=== PATIENT | female | born 1940 | race Caucasian/White ===

== ENCOUNTER 2016-08-14 09:54 | Emergency (ER) | payer OTHER ==
[2016-08-14 10:00] VITALS: TEMP 98.2
--- NOTE | 2016-08-14 10:09 | CPEKG ---
Heart Rate: 88 RR Interval: 682 P-R Interval: 212 QRSD Interval: 72 QT Interval: 356 QTC Interval: 431 P [place]: 47 QRS [place]: 20 T Wave [place]: 33 EKG Severity - NORMAL ECG - EKG Impression: SINUS RHYTHM EKG Impression: similar to previous Electronically Signed By: Mario Berman 14-Aug-2016 10:49:41
[2016-08-14] MEDS ORDERED: ASPIRIN 325 MG TAB PO ONE (10:11)
[2016-08-14] MEDS ORDERED: ASPIRIN 81 MG CHEWABLE TAB ONE (10:14)
[2016-08-14 10:20] LABS: % IMMATURE GRANULYOCYTES 0.4 % (0.0-1.1); ABSOLUTE IMMATURE GRANULOCYTES 0.02 10^3/uL (0.00-0.10); ADD DIFF? NO; ADD MORPH? NO; ADD SCAN? NO; ATYPICAL LYMPHOCYTE FLAG 40 (0-99); FRAGMENT RBC FLAG 0 (0-99); HEMATOCRIT 46.6 % (38.0-47.0); HEMOGLOBIN 15.6 g/dL (12.6-16.3); LEFT SHIFT FLG 0 (0-99); LIPEMIA HEMOLYSIS FLAG 80 (0-99); MEAN CELL HEMOGLOBIN 28.8 pg (27.9-34.1); MEAN CELL HEMOGLOBIN CONCENTR. 33.5 g/dL (32.4-36.7); MEAN PLATELET VOLUME 10.9 fL (8.7-11.7); PLATELET CLUMPS FLAG 0 (0-99); PLATELET COUNT 177 10^3/uL (150-400); RED BLOOD CELL COUNT 5.42 10^6/uL (4.18-5.33); RED CELL DISTRIBUTION WIDTH 13.2 % (11.5-15.2)
[2016-08-14 10:43] LABS: ANION GAP 10 mEq/L (8-16); CALCIUM 9.6 mg/dL (8.5-10.4); CARBON DIOXIDE 27 mEq/l (22-31); CHLORIDE 108 mEq/L (97-110); CREATININE 0.9 mg/dL (0.6-1.0); GLOMERULAR FILTRATION RATE > 60; GLUCOSE 97 mg/dL (70-100); POTASSIUM 4.3 mEq/L (3.5-5.2); SODIUM 145 mEq/L (134-144)
--- NOTE | 2016-08-14 10:47 | DX ---
PA and Lateral Chest 10:03 a.m. Indication: Chest and epigastric pain. Cough. Comparison: Two-view chest October 09, 2013 Findings: Minimal diffuse peribronchial thickening is similar to October 2013. No airspace consolidatio n, edema or effusion. The heart size is normal. Impression: No pneumonia. Minimal chronic airways disease.
--- NOTE | 2016-08-14 10:48 | EDPHY ---
H & P Stated Complaint: cough congestion /sharp pains intermittently in chest last 2 weeks Time Seen by Provider: 08/14/16 10:24 HPI/ROS: CHIEF COMPLAINT: Chest pain HISTORY OF PRESENT ILLNESS: Patient is a 76-year-old female who comes to the emergency department complaining dull left-sided chest pain that has been present for 2 weeks. It has been constant. She also has occasional sharp shooting pain to her neck on the left side or her back. She has not been able to associated these with any type of movement or specific cause. Also over the last 4 days she has developed a sinus congestion, sore throat and cough. No shortness of breath. No abdominal pain or GI symptoms. No history of cardiac or pulmonary disease. REVIEW OF SYSTEMS: Constitutional: denies: chills, fever, recent illness, recent injury EENTM: denies: blurred vision, double vision, nose congestion Respiratory: See HPI Cardiac: See HPI Gastrointestinal/Abdominal: denies: abdominal pain, diarrhea, nausea, vomiting, blood streaked stools Genitourinary: denies: dysuria, frequency, hematuria, pain Musculoskeletal: denies: joint pain, muscle pain Skin: denies: lesions, rash, jaundice, bruising Neurological: denies: headache, numbness, paresthesia, tingling, dizziness, weakness Hematologic/Lymphatic: denies: blood clots, easy bleeding, easy bruising Immunologic/allergic: denies: HIV/AIDS, transplant EXAM: GENERAL: Well-appearing, well-nourished and in no acute distress. HEAD: Atraumatic, normocephalic. EYES: Pupils equal round and reactive to light, extraocular movements intact, sclera anicteric, conjunctiva are normal. ENT: TMs normal, nares patent, oropharynx clear without exudates. Moist mucous membranes. Tender sinuses NECK: Normal range of motion, supple without lymphadenopathy or JVD. LUNGS: Breath sounds clear to auscultation bilaterally and equal. No wheezes rales or rhonchi. HEART: Regular rate and rhythm without murmurs, rubs or gallops. ABDOMEN: Soft, nontender, normoactive bowel sounds. No guarding, no rebound. No masses appreciated. BACK: No CVA tenderness, no spinal tenderness, step-offs or deformities EXTREMITIES: Normal range of motion, no pitting or edema. No clubbing or cyanosis. NEUROLOGICAL: Cranial nerves II through XII grossly intact. Normal speech, normal gait. 5/5 strength, normal movement in all extremities, normal sensation PSYCH: Normal mood, normal affect. SKIN: Warm, dry, normal turgor, no visible rashes or lesions. Source: Patient Exam Limitations: No limitations - Personal History Current Tetanus/Diphtheria Vaccine: Yes - Medical/Surgical History Hx Asthma: No Hx Chronic Respiratory Disease: No Hx Diabetes: No Hx Cardiac Disease: Yes Hx Renal Disease: No Hx Cirrhosis: No Hx Alcoholism: No Hx HIV/AIDS: No Hx Splenectomy or Spleen Trauma: No Other PMH: ? TIA/ afib - Family History Significant Family History: No pertinent family hx - Social History Smoking Status: Former smoker Alcohol Use: None Drug Use: None Constitutional: Initial Vital Signs Temperature (C) 36.8 C 08/14/16 09:57 Heart Rate 95 08/14/16 09:57 Respiratory Rate 16 08/14/16 09:57 Blood Pressure 141/94 H 08/14/16 09:57 O2 Sat (%) 94 08/14/16 09:57 O2 Delivery Mode Room Air Allergies/Adverse Reactions: No Known Allergies Allergy (Verified 08/14/16 09:56) Home Medications: Medication Instructions Recorded SIMVASTATIN 08/21/10 Aspirin [Aspir 81] 81 mg PO 04/09/12 AZITHROMYCIN [Z-PACK] 250 mg PO DAILY #4 tab 08/14/16 Medical Decision Making - Diagnostics EKG Interpretation: An EKG obtained and was read and documented in trace view. Please see trace view for full reading and report. Sinus rhythm, no acute ischemic changes ED Course/Re-evaluation: 1:30 p.m. we discussed her CT and lab results. She is relieved. She is asymptomatic currently. It is reassuring that her troponin is negative after several weeks of symptoms. She thinks that this is likely musculoskeletal. Will also treat her with azithromycin for what appears to be a sinusitis or upper respiratory tract infection. The patient is happy with this and declines further workup or testing at this time. Vital signs remained stable. Additional verbal discharge instructions given. Differential Diagnosis: Partial list of the Differential diagnosis considered include but were not limited to; bronchitis, pneumonia, acute coronary disease, sinusitis, viral syndrome and although unlikely based on the history and physical exam, I also considered PE, dissection. I discussed these differential diagnoses and the plan with the patient as well as the usual and expected course. The patient understands that the diagnosis is provisional and that in medicine we are not always correct and that further workup is often warranted. Usual and customary warnings were given. All of the patient's questions were answered. The patient was instructed to return to the emergency department should the symptoms at all worsen or return, otherwise to followup with the physician as we discussed. - Data Points Laboratory Results: Laboratory Results 08/14/16 10:11 08/14/16 10:11 08/14/16 10:11 WBC 5.62 10^3/uL (3.80-9.50) RBC 5.42 H 10^6/uL (4.18-5.33) Hgb 15.6 g/dL (12.6-16.3) Hct 46.6 % (38.0-47.0) MCV 86.0 fL (81.5-99.8) MCH 28.8 pg (27.9-34.1) MCHC 33.5 g/dL (32.4-36.7) RDW 13.2 % (11.5-15.2) Plt Count 177 10^3/uL (150-400) MPV 10.9 fL (8.7-11.7) Neut % (Auto) 50.5 % (39.3-74.2) Lymph % (Auto) 31.7 % (15.0-45.0) Lane % (Auto) 11.2 % (4.5-13.0) Eos % (Auto) 5.7 % (0.6-7.6) Baso % (Auto) 0.5 % (0.3-1.7) Nucleat RBC Rel Count 0.0 % (0.0-0.2) Absolute Neuts (auto) 2.84 10^3/uL (1.70-6.50) Absolute Lymphs (auto) 1.78 10^3/uL (1.00-3.00) Absolute Monos (auto) 0.63 10^3/uL (0.30-0.80) Absolute Eos (auto) 0.32 10^3/uL (0.03-0.40) Absolute Basos (auto) 0.03 10^3/uL (0.02-0.10) Absolute Nucleated RBC 0.00 10^3/uL (0-0.01) Immature Gran % 0.4 % (0.0-1.1) Immature Gran # 0.02 10^3/uL (0.00-0.10) Sodium 145 H mEq/L (134-144) Potassium 4.3 mEq/L (3.5-5.2) Chloride 108 mEq/L (97-110) Carbon Dioxide 27 mEq/l (22-31) Anion Gap 10 mEq/L (8-16) BUN 14 mg/dL (7-23) Creatinine 0.9 mg/dL (0.6-1.0) Estimated GFR > 60 Glucose 97 mg/dL (70-100) Calcium 9.6 mg/dL (8.5-10.4) Troponin I < 0.012 ng/mL (0-0.034) Medications Given: Discontinued Medications Aspirin (Aspirin) 325 mg PO EDNOW ONE Stop: 08/14/16 10:12 Last Admin: 08/14/16 10:16 Dose: 325 mg Azithromycin (Zithromax) 500 mg PO EDNOW ONE PRN Reason: Protocol Stop: 08/14/16 13:39 Last Admin: 08/14/16 13:40 Dose: 500 mg Departure - Departure Disposition: Home, Routine, Self-Care Clinical Impression: Sinusitis Qualifiers: Sinusitis location: maxillary Chronicity: acute Recurrence: non-recurrent Qualifier Code: (J01.00) Acute maxillary sinusitis, unspecified Condition: Fair Instructions: Sinusitis (ED) Referrals: Didi Garrison MD [Primary Care Provider] - As per Instructions Prescriptions: AZITHROMYCIN [Z-PACK] 250 mg PO DAILY #4 tab
[2016-08-14] MEDS ORDERED: IOPAMIDOL (ISOVUE 370) 100 ML BTL IV ONE (10:53)
[2016-08-14 10:54] LABS: TROPONIN I < 0.012 ng/mL (0-0.034)
--- NOTE | 2016-08-14 12:02 | CT ---
Chest CTA With IV Contrast History: Cough, chest pain. Technique: Ultrafast ultrathin [address] obtained through the chest after bolus administra tion of 85 mL of Isovue 370 nonionic contrast without complication. Soft tissue and bone window evalu ation is performed. Dose reduction techniques were utilized. Comparison: Chest x-ray earlier today CT Chest: Findings: There is a small hiatal hernia with fluid in the hernia sac. There is no evidence of pneumo reza, pleural effusion, mass or pneumothorax. There is LAD coronary artery disease. Heart size is norm al and there is no pericardial effusion. The thoracic aorta is normal in size without evidence of dis section. There is a small 5 mm noncalcified nodule in the left lower lobe on image 130, series 6, sta ble since 2006. There is heterogeneous enlargement with macrocalcification formation involving the ri ght thyroid gland. There is a small nodule in the thyroid isthmus. There is a 19 x 12 mm bilobed nodu le in the upper outer right breast that is stable since CT June 2007 CT Pulmonary Angiogram: Technique: Multiplanar and 3D reconstructions are reviewed on an independent 3D workstation. Comparison: CT 06/16/2007 Findings: No filling defects or mural thickening is detected. Specifically, no evidence for pulmonary embolism. Right-sided heart chambers are not dilated and the interventricular septum has normal morp hology. Impression: No evidence for pulmonary embolic disease. 2. Coronary artery disease without cardiomegaly. 3. Small hiatal hernia with air-fluid level. 4. Right-sided thyroid enlargement with a small isthmus nodule. This is consistent with an multinodul ar goiter identified on ultrasound in August 2015. It has enlarged since 2006. 5. 5 mm left lower lobe benign noncalcified nodule stable since June 2007. Results called and discussed with VINCENT MIRANDA MD at 08/14/2016 11:59 General information for patients regarding this examination can be found at [email or web address]. If you have questions or comments about this report, please contact me at [phone] (hospital) or [phone] (cell).
[2016-08-14] MEDS ORDERED: AZITHROMYCIN 250 MG TAB PO ONE (13:38)
[2016-08-14 13:51] VITALS: BP 118/76; PULSE 71; RESP 16; O2SAT 95
== END 2016-08-14 13:50 | disposition home or self-care (01) ==
DX: J01.00 Acute maxillary sinusitis, unspecified (principal); Z87.891 Personal history of nicotine dependence; Z79.82 Long term (current) use of aspirin
CPT/HCPCS: 71020; 71275; 93005; 99285; Q9967

== ENCOUNTER → 2016-11-05 | Outpatient (CLI) | payer OTHER | LOC: BMCIMAGING 13:47 | PROVIDERS: ATTEND Internal Medicine Endocrinology, Diabetes & Metabolism | DX: Z13.820 Encounter for screening for osteoporosis (principal); M81.0 Age-related osteoporosis without current pathological fracture ==

== ENCOUNTER → 2017-03-26 | Outpatient (CLI) | payer OTHER | LOC: BMCIMAGING 07:56 | PROVIDERS: ATTEND Internal Medicine | DX: Z12.31 Encounter for screening mammogram for malignant neoplasm of breast (principal); Z80.3 Family history of malignant neoplasm of breast | CPT/HCPCS: G0202 ==

== ENCOUNTER → 2017-04-22 | Outpatient (CLI) | payer OTHER | LOC: BMCIMAGING 09:04 | PROVIDERS: ATTEND Family Medicine | DX: J40 Bronchitis, not specified as acute or chronic (principal) ==

== ENCOUNTER → 2018-04-10 | Outpatient (CLI) | payer OTHER | LOC: BMCIMAGING 08:45 | PROVIDERS: ATTEND Internal Medicine | DX: Z12.31 Encounter for screening mammogram for malignant neoplasm of breast (principal); Z80.3 Family history of malignant neoplasm of breast ==

== ENCOUNTER → 2018-06-06 | Outpatient (CLI) | payer OTHER ==
[~2018-06-06] MED LIST: IOPAMIDOL (ISOVUE-300) 100 ML BTL ONE
== END ==
LOC: FIMAGING 08:43
PROVIDERS: ATTEND Internal Medicine
DX: E04.2 Nontoxic multinodular goiter (principal); K44.9 Diaphragmatic hernia without obstruction or gangrene; N63.11 Unspecified lump in the right breast, upper outer quadrant; I72.8 Aneurysm of other specified arteries
CPT/HCPCS: 71260; 74160; Q9967

== ENCOUNTER 2018-06-17 08:28 | Emergency (ER) | payer OTHER ==
--- NOTE | 2018-06-17 08:43 | EDPHY ---
H & P Stated Complaint: 0400 woke c L low bk/L inguinal pn. Painful urination. Time Seen by Provider: 06/17/18 08:43 - Personal History Current Tetanus/Diphtheria Vaccine: Unsure - Medical/Surgical History Hx Asthma: No Hx Chronic Respiratory Disease: No Hx Diabetes: No Hx Cardiac Disease: Yes Hx Renal Disease: No Hx Cirrhosis: No Hx Alcoholism: No Hx HIV/AIDS: No Hx Splenectomy or Spleen Trauma: No Other PMH: ? TIA/ afib - Social History Smoking Status: Former smoker Constitutional: Initial Vital Signs Temperature (C) 36.5 C 06/17/18 08:33 Heart Rate 66 06/17/18 08:33 Respiratory Rate 18 06/17/18 08:33 Blood Pressure 153/108 H 06/17/18 08:33 O2 Sat (%) 95 06/17/18 08:33 O2 Delivery Mode Room Air O2 (L/minute) 2 Allergies/Adverse Reactions: No Known Allergies Allergy (Verified 06/17/18 08:32) Home Medications: Medication Instructions Recorded SIMVASTATIN 08/21/10 Aspirin [Aspir 81] 81 mg PO 04/09/12 AZITHROMYCIN [Z-PACK] 250 mg PO DAILY #4 tab 08/14/16 Medical Decision Making - Diagnostics Imaging Results: Imaging Impressions Abdomen/Pelvis CT 06/17/18 08:51 Impression: 1. Moderate to severe left hydroureteronephrosis secondary to a 4.5 mm distal left ureterolithiasis. 2. A 1 mm nonobstructive calyceal calculus lower pole right kidney. No right hydronephrosis. Atherosclerotic aorta and iliac arteries without aneurysm. 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 4. L4-L5 moderate central canal stenosis secondary to bilateral facet arthropathy. Findings and recommendations discussed with Emergency Department physician, Luis Carlos Forde MD at 9:30 hours, 06/17/2018. Final report concurs with initial preliminary interpretation. Attention: This CT examination is specifically designed to evaluate patients who are clinically suspected of having acute obstructive uropathy. This examination does not use radiographic contrast, and as such, provides only a limited evaluation of the abdomen, pelvis and retroperitoneum. If there is further clinical suspicion for pathological conditions other than obstructive uropathy, a complete CT evaluation of the abdomen and pelvis utilizing intravenous, oral, and rectal contrast should be considered. Imaging: I viewed and interpreted images myself ED Course/Re-evaluation: CHIEF COMPLAINT: Abdominal/back pain HISTORY OF PRESENT ILLNESS: This patient is a 78 year old female with history of kidney stones arriving via EMS for evaluation of left sided abdominal and back pain. She woke this morning at 4am with stabbing pain in her LLQ. She endorses associated nausea and diarrhea. The pain has moved around from the LLQ towards her left flank. She has subjective fever and chills. EMS crews administered 4mg Zofran and 100mcg Fentanyl in transport for symptom relief. No chest pain, shortness of breath, lightheadedness, or other associated symptoms. REVIEW OF SYSTEMS: A comprehensive 10 system review of systems is otherwise negative aside from elements mentioned in the history of present illness and medical decision making. PHYSICAL EXAM: HR, BP, O2 Sat, RR. Temp noted General Appearance: Alert, well hydrated, appropriate, and non-toxic appearing. Head: Atraumatic without scalp tenderness or obvious injury Eyes: Pupils equal, round, reactive to light and accommodation, EOMI, no trauma , no injection. Ears: Clear bilaterally, no perforation, normal landmarks Nose: Atraumatic, no rhinorrhea, clear. Throat: There is no erythema or exudates, no lesions, normal tonsils, mucus membranes moist. Neck: Supple, 2+ carotid upstroke, nontender, no lymphadenopathy. Respiratory: No retractions, no distress, no wheezes, and no accessory muscle use. Lungs are clear to auscultation bilaterally. Cardiovascular: Regular rate and rhythm, no murmurs, rubs, or gallops. Bilateral carotid, radial, dorsalis pedis, and posterior tibial pulses intact. Good capillary refill all extremities. Gastrointestinal: Abdomen is soft, nontender, non-distended, no masses, no rebound, no guarding, no peritoneal signs. Musculoskeletal: Normal active ROM of all extremities, atraumatic. Neurological: Alert, appropriate, and interactive. The patient has normal DTRs and non-focal cranial nerves, motor, sensory, and cerebellar exam. Skin: No rashes, good turgor, no nodules on palpation. Past medical history: Atrial fibrillation Past surgical history: Noncontributory Family history: Noncontributory Social history: Retired. Lives in [place]. Does not abuse tobacco, drugs, or alcohol. DIFFERENTIAL DIAGNOSIS: The differential diagnosis for the patient's flank pain included but was not limited to musculoskeletal causes, kidney stone, pyelonephritis, shingles, diverticulitis, appendicitis, and aortic aneurysm. MEDICAL DECISION MAKIN78 y/o female with history of kidney stones presents with left flank and left lower quadrant pain. No tenderness to palpation on exam. Plan for CT abdomen/ pelvis without contrast to r/o kidney stone or other acute processes. Plan to administer Dilaudid, Ketorolac, Zofran, IVF for symptom relief. Plan for labs including CBC, chemistries, UA. Patient continues to complain of nausea. Plan to administer 12.5mg IV Phenergan for nausea relief. 9:[address] Griffin, radiologist. CT abdomen/pelvis shows 4.5mm distal left kidney stone with moderate to severe left hydroureteronephrosis . UA shows hematuria. Trace leuk esterase present, likely secondary to kidney stone rather than an infectious process. 11:00 Reassessed. Patient is currently feeling much better. Her pain and nausea are completely relieved. She feels comfortable going home and following up with urology in the outpatient setting. Plan to discharge home in good condition. Follow up and return precautions discussed. She is comfortable with this plan. - Data Points Laboratory Results: Laboratory Results 06/17/18 08:30 06/17/18 08:30 06/17/18 06/17/18 06/17/18 11:00 09:03 08:30 WBC RBC Hgb POC Hgb 15.0 gm/dL gm/dL (12.6-16.3) Hct POC Hct 44 % % (38-47) MCV MCH MCHC RDW Plt Count MPV Neut % (Auto) Lymph % (Auto) [place] % (Auto) Eos % (Auto) Baso % (Auto) Nucleat RBC Rel Count Absolute Neuts (auto) Absolute Lymphs (auto) Absolute Monos (auto) Absolute Eos (auto) Absolute Basos (auto) Absolute Nucleated RBC Immature Gran % Immature Gran # POC Sodium 141 mEq/L mEq/L (135-145) Sodium 139 mEq/L mEq/L (135-145) POC Potassium 4.2 mEq/L mEq/L (3.3-5.0) Potassium 5.0 mEq/L mEq/L (3.5-5.2) POC Chloride 106 mEq/L mEq/L (97-110) Chloride 109 mEq/L mEq/L (97-110) Carbon Dioxide 23 mEq/l mEq/l (22-31) Anion Gap 7 mEq/L mEq/L (6-14) POC BUN 25 mg/dL H mg/dL (7-23) BUN 26 mg/dL H mg/dL (7-23) Creatinine 1.2 mg/dL H mg/dL (0.6-1.0) POC Creatinine 1.2 mg/dL H mg/dL (0.6-1.0) Estimated GFR 43 Glucose 122 mg/dL H mg/dL (70-100) POC Glucose 141 mg/dL H mg/dL (70-100) Calcium 9.8 mg/dL mg/dL (8.5-10.4) Urine Color YELLOW Urine Appearance MODERATELY TURBID Urine pH 5.0 (5.0-7.5) Ur Specific Avenue 1.021 (1.002-1.030) Urine Protein NEGATIVE (NEGATIVE) Urine Ketones NEGATIVE (NEGATIVE) Urine Blood 3+ H (NEGATIVE) Urine Nitrate NEGATIVE (NEGATIVE) Urine Bilirubin NEGATIVE (NEGATIVE) Urine Urobilinogen NEGATIVE EU EU (0.2-1.0) Ur Leukocyte Esterase TRACE H (NEGATIVE) Urine RBC 50-182 /hpf H /hpf (0-3) Urine WBC 10-15 /hpf H /hpf (0-3) Ur Epithelial Cells TRACE /lpf /lpf (NONE-1+) Calcium Oxalate Crystal PRESENT /hpf /hpf (NONE-1+) Urine Bacteria 1+ /hpf H /hpf (NONE SEEN) Urine Mucus TRACE /lpf /lpf (NONE-1+) Urine Glucose NEGATIVE (NEGATIVE) 06/17/18 08:30 WBC 9.40 10^3/uL 10^3/uL (3.80-9.50) RBC 5.40 10^6/uL H 10^6/uL (4.18-5.33) Hgb 15.9 g/dL g/dL (12.6-16.3) POC Hgb Hct 47.1 % H % (38.0-47.0) POC Hct MCV 87.2 fL fL (81.5-99.8) MCH 29.4 pg pg (27.9-34.1) MCHC 33.8 g/dL g/dL (32.4-36.7) RDW 13.5 % % (11.5-15.2) Plt Count 186 10^3/uL 10^3/uL (150-400) MPV 12.2 fL H fL (8.7-11.7) Neut % (Auto) 81.9 % H % (39.3-74.2) Lymph % (Auto) 13.1 % L % (15.0-45.0) [place] % (Auto) 3.8 % L % (4.5-13.0) Eos % (Auto) 0.4 % L % (0.6-7.6) Baso % (Auto) 0.5 % % (0.3-1.7) Nucleat RBC Rel Count 0.0 % % (0.0-0.2) Absolute Neuts (auto) 7.69 10^3/uL H 10^3/uL (1.70-6.50) Absolute Lymphs (auto) 1.23 10^3/uL 10^3/uL (1.00-3.00) Absolute Monos (auto) 0.36 10^3/uL 10^3/uL (0.30-0.80) Absolute Eos (auto) 0.04 10^3/uL 10^3/uL (0.03-0.40) Absolute Basos (auto) 0.05 10^3/uL 10^3/uL (0.02-0.10) Absolute Nucleated RBC 0.00 10^3/uL 10^3/uL (0-0.01) Immature Gran % 0.3 % % (0.0-1.1) Immature Gran # 0.03 10^3/uL 10^3/uL (0.00-0.10) POC Sodium Sodium POC Potassium Potassium POC Chloride Chloride Carbon Dioxide Anion Gap POC BUN BUN Creatinine POC Creatinine Estimated GFR Glucose POC Glucose Calcium Urine Color Urine Appearance Urine pH Ur Specific Avenue Urine Protein Urine Ketones Urine Blood Urine Nitrate Urine Bilirubin Urine Urobilinogen Ur Leukocyte Esterase Urine RBC Urine WBC Ur Epithelial Cells Calcium Oxalate Crystal Urine Bacteria Urine Mucus Urine Glucose Medications Given: Discontinued Medications Hydromorphone HCl (Dilaudid) 0.5 mg IVP EDNOW ONE Stop: 06/17/18 08:52 Last Admin: 06/17/18 09:03 Dose: 0.5 mg Sodium Chloride (Ns) 1,000 mls @ 0 mls/hr IV EDNOW ONE; Wide Open PRN Reason: Protocol Stop: 06/17/18 08:52 Last Admin: 06/17/18 09:01 Dose: 1,000 mls Ketorolac Tromethamine (Toradol) 30 mg IVP EDNOW ONE Stop: 06/17/18 08:52 Last Admin: 06/17/18 09:01 Dose: 30 mg Ondansetron HCl (Zofran) 4 mg IVP EDNOW ONE Stop: 06/17/18 08:52 Last Admin: 06/17/18 09:01 Dose: 4 mg Promethazine HCl (Phenergan) 12.5 mg IVP EDNOW ONE Stop: 06/17/18 09:37 Last Admin: 06/17/18 09:41 Dose: 12.5 mg Point of Care Test Results: Chemistry 06/17/18 09:03 POC Sodium 141 mEq/L mEq/L (135-145) POC Potassium 4.2 mEq/L mEq/L (3.3-5.0) POC Chloride 106 mEq/L mEq/L (97-110) POC BUN 25 mg/dL H mg/dL (7-23) POC Creatinine 1.2 mg/dL H mg/dL (0.6-1.0) POC Glucose 141 mg/dL H mg/dL (70-100) ISTAT H&H 06/17/18 09:03 POC Hgb 15.0 gm/dL gm/dL (12.6-16.3) POC Hct 44 % % (38-47) Departure - Departure Disposition: Home, Routine, Self-Care Clinical Impression: Calculus of left kidney Condition: Good Instructions: Kidney Stones (ED), Flank Pain (ED) Additional Instructions: Follow up with your urologist within one week. Return to the emergency department for fever, severe pain, inability to urinate or other concerns. Referrals: Cheri Chaudhry MD [Medical Doctor] - As per Instructions Report Scribed for: Luis Carlos Forde Report Scribed by: Shena Patten Date of Report: 06/17/18 Time of Report: 08:47
[2018-06-17] MEDS ORDERED: KETOROLAC 30 MG/1 ML SDV IVP ONE (08:51)
[2018-06-17] MEDS ORDERED: HYDROmorphONE/DILAUDID 2 MG/ML INJ IVP ONE (08:51)
[2018-06-17] MEDS ORDERED: NS 1,000 ML IV ONE (08:51)
[2018-06-17] MEDS ORDERED: ONDANSETRON 4 MG/2 ML VIAL IVP ONE (08:51)
[2018-06-17 09:01] LABS: PLATELET COUNT 186 10^3/uL (150-400)
[2018-06-17] MEDS ORDERED: PROMETHAZINE HCL 25 MG/ML INJ IVP ONE (09:36)
[2018-06-17 12:02] VITALS: BP 122/70
== END 2018-06-17 12:15 | disposition home or self-care (01) ==
LOC: EDUNIT#
DX: N13.1 Hydronephrosis with ureteral stricture, not elsewhere classified (principal); N20.0 Calculus of kidney; E86.9 Volume depletion, unspecified; Z87.442 Personal history of urinary calculi
CPT/HCPCS: 74176; 96361; 96374; 96375; 99285; J1170; J1885; J2405; J2550; 82435-PO; 82565-PO; 82947-PO; 84132-PO; 84295-PO; 84520-PO; 85014-PO

== ENCOUNTER 2018-06-18 14:50 | Emergency (ER) | payer OTHER ==
[2018-06-18] MEDS ORDERED: ACETAMINOPHEN 325 MG TAB PO ONE (17:02)
--- NOTE | 2018-06-18 17:05 | EDPHY ---
H & P Stated Complaint: R upper quad pain, chills, recent kid stone Time Seen by Provider: 06/18/18 16:09 HPI/ROS: CHIEF COMPLAINT: Fever HISTORY OF PRESENT ILLNESS: 78-year-old female presents with fever. Onset of fever this morning. Associated with shaking chills. She also developed mild right upper quadrant pain this morning. The pain has been constant, without clear alleviating or aggravating factors. No nausea, vomiting or diarrhea. Yesterday she was seen in this emergency department for left flank pain and diagnosed with a left ureteral calculus. She passed the stone yesterday evening and denies left flank/abdominal pain today. She received a flu vaccination this year. No URI symptoms or myalgias. REVIEW OF SYSTEMS: complete 10 point ROS reviewed and is negative except for the noted elements in the HPI - Medical/Surgical History Hx Asthma: No Hx Chronic Respiratory Disease: No Hx Diabetes: No Hx Cardiac Disease: No Hx Renal Disease: No Hx Cirrhosis: No Hx Alcoholism: No Hx HIV/AIDS: No Hx Splenectomy or Spleen Trauma: No Other PMH: sleep apnea. a fib remote hx - Social History Smoking Status: Never smoked Alcohol Use: Sober Drug Use: None - Physical Exam Exam: General Appearance: Alert, pleasant, nontoxic-appearing Eyes: Pupils equal and round, no conjunctival pallor or injection ENT, Mouth: Mucous membranes moist, no pharyngeal erythema Neck: Normal inspection, no adenopathy Respiratory: Lungs are clear to auscultation Cardiovascular: Regular rate and rhythm Gastrointestinal: Abdomen is soft, mild right upper quadrant tenderness Neurological: A&O, nonfocal, normal gait Skin: Warm and dry Extremities: Normal inspection, no erythema Psychiatric: Mood and affect normal Constitutional: Initial Vital Signs Temperature (C) 37.0 C 06/18/18 15:00 Heart Rate 89 06/18/18 15:00 Respiratory Rate 16 06/18/18 15:00 Blood Pressure 152/82 H 06/18/18 15:00 O2 Sat (%) 97 06/18/18 15:00 O2 Delivery Mode Room Air Allergies/Adverse Reactions: No Known Allergies Allergy (Verified 06/17/18 08:32) Home Medications: Medication Instructions Recorded NK [No Known Home Meds] 06/18/18 Medical Decision Making - Diagnostics Imaging Results: Abdomen Ultrasound 06/18/18 17:03 Impression: No evidence for cholelithiasis or cholecystitis. Evidence of atherosclerotic change in the abdominal aorta, without evidence for aneurysmal dilatation. Limited visualization of the pancreatic tail secondary to overlying bowel gas. Results called and discussed with Katie Baxter M.D. on June 18, 2018 at 1752. Chest X-Ray 06/18/18 17:03 Impression: Question mild underlying bronchitis. No other findings for acute cardiopulmonary abnormality. Imaging: Discussed imaging studies w/ call center analyst Radiologist, I viewed and interpreted images myself ED Course/Re-evaluation: This patient presents with fever starting today. Physical exam reveals a nontoxic-appearing elderly female with mild right upper quadrant tenderness. Fever workup initiated, including right upper quadrant ultrasound. Laboratory results and imaging tests are unremarkable. No leukocytosis, influenza negative and normal urinalysis. Right upper quadrant ultrasound reveals no evidence of cholecystitis or gallstones and chest x-ray reveals no evidence of pneumonia. Unclear etiology of fever, likely viral. The patient will take ibuprofen or Tylenol if fever recurs. She return to the emergency department for worsening symptoms or any concerns. Follow-up with PCP in 2 days if fever persists. Differential Diagnosis: Differential diagnosis includes pyelonephritis, cholecystitis, influenza, cellulitis, pneumonia, abscess, meningitis. - Data Points Laboratory Results: Laboratory Results 06/18/18 16:50 06/18/18 16:50 Medications Given: Discontinued Medications Acetaminophen (Tylenol) 650 mg PO EDNOW ONE Stop: 06/18/18 17:03 Last Admin: 06/18/18 18:36 Dose: 650 mg Departure - Departure Disposition: Home, Routine, Self-Care Clinical Impression: Fever Condition: Good Instructions: Fever in Adults (ED) Additional Instructions: Ibuprofen 600 mg every 6 hr wall fever persists. Follow-up in 1-2 days for persistent fever. Return sooner for worsening symptoms or any concerns. Referrals: Didi Garrison MD [Primary Care Provider] - As per Instructions
[2018-06-18 17:09] LABS: PLATELET COUNT 147 10^3/uL (150-400)
[2018-06-18 18:10] VITALS: BP 131/72
== END 2018-06-18 19:19 | disposition home or self-care (01) ==
DX: R50.9 Fever, unspecified (principal); R10.11 Right upper quadrant pain

== ENCOUNTER 2018-07-29 10:25 | Observation (INO) | payer OTHER ==
[2018-07-29] MEDS ORDERED: ASPIRIN 81 MG CHEWABLE TAB PO ONE (11:10)
[2018-07-29] MEDS ORDERED: ONDANSETRON 4 MG/2 ML VIAL IVP ONE (11:10)
[2018-07-29 11:16] LABS: PLATELET COUNT 166 10^3/uL (150-400)
[2018-07-29 11:24] LABS: INR 0.96 (0.83-1.16)
--- NOTE | 2018-07-29 12:36 | EDPHY ---
H & P Time Seen by Provider: 07/29/18 11:11 HPI/ROS: HPI Chest discomfort, epigastric pain. 78-year-old female by private vehicle. This patient reports that last night she developed and epigastric pain described as sharp and burning. She describes that it then radiated up into her left chest and into her left neck. She states that she has not had this epigastric pain as intensely is in the past. She does however say that she has had this pain in her chest radiating up into her left neck in the past. He does thought to be attributed to a hiatal hernia. She reports that she had 2 episodes of nonbilious nonbloody vomiting last night followed by dry heaving after she tried to drink some water prior to going to bed. She was not able to sleep at all last night because of the discomfort. She reports that again this morning she had this epigastric discomfort in continued radiation of this pain into her left anterior chest and left lateral neck. She was initially seen at the office of her primary care physician, Dr. Didi Garrison. She was then sent immediately here to the emergency department for evaluation. ROS: Constitutional: No fever, no chills. No weakness. Eyes: No discharge. No changes in vision. ENT: No sore throat. No nasal congestion or rhinorrhea. Respiratory: No cough. No shortness of breath. Cardiac: As above, no palpitations. Gastrointestinal: As above, no vomiting, no diarrhea. Genitourinary: No hematuria. No dysuria or increased frequency with urination. Musculoskeletal: No back pain. As above. No myalgias or arthralgias. Skin: No rashes. Neurological: No headache. No focal weakness or altered sensation. Past medical history: Remote history of atrial fibrillation, kidney stones, sleep apnea, as above. Social history: She lives with a partner. Nonsmoker. No alcohol. Physical Exam: General Appearance: Alert, no distress. This patient is responding to questions appropriately and in full sentences. This patient appears well- hydrated and well-nourished. Eyes: Pupils equal and round no pallor or injection. No lid edema, erythema or injection. Respiratory: There are no retractions, lungs are clear to auscultation with good air movement bilaterally. Cardiovascular: Regular rate and rhythm. No murmur appreciated. Gastrointestinal: Abdomen is soft and nontender, no masses, bowel sounds normal. No focal tenderness at McBurney's point. No Sharp sign. Neurological: Motor sensory function is grossly intact. Cranial nerves are normal. Gait is normal. Skin: Warm and dry, no rashes. Musculoskeletal: Neck is supple and nontender. Extremities are symmetrical. All joints range without pain or impingement. Psychiatric: No agitation. No depression. Database: EKG: EKG time is 11:07 a.m.; EKG shows a narrow complex normal sinus rhythm with a ventricular rate of 86. The SC is prolonged, the QRS, QT intervals are within normal limits. There are no ST-T wave changes indicative of ischemic or injury pattern. No evidence of right heart strain. Interpreted by me. Imaging: Chest x-ray AP portable; the cardiac mediastinal silhouette is unremarkable. No evidence of infiltrate or pneumothorax. No acute cardiopulmonary disease process noted. Interpreted by me. Procedures: Emergency department course: Triage vital signs reviewed and are unremarkable. IV was placed. She was placed on a cafeteria monitor. An EKG was obtained and reviewed by myself. She was given 324 mg of chewed aspirin and 4 mg of IV Zofran. 12:40 p.m., the patient was re-evaluated, resting comfortably at this time. I reviewed her emergency department workup in detail. I discussed admission for observation overnight. Her story is concerning. At this time she does not feel comfortable going home. She endorses admission. Hospitalist paged. 12:50 p.m., spoke with on-call hospitalist. Case discussed in detail. Patient accepted for admission to the hospitalist service by Dr. Cuadra. Cardiology consultation deferred to hospitalist. Differential Diagnosis: The differential diagnosis on this patient includes but is not limited to gastritis, pancreatitis, acute coronary syndrome, biliary colic. This represents a partial list of diagnoses considered. These considerations are based on history, physical exam, past history, reassessment and diagnostic testing. Smoking Status: Never smoked Constitutional: Initial Vital Signs Temperature (C) 37 C 07/29/18 10:37 Heart Rate 98 07/29/18 10:37 Respiratory Rate 16 07/29/18 10:37 Blood Pressure 131/80 H 07/29/18 10:37 O2 Sat (%) 92 07/29/18 10:37 O2 Delivery Mode Room Air Allergies/Adverse Reactions: No Known Allergies Allergy (Verified 07/29/18 10:37) Home Medications: Medication Instructions Recorded NK [No Known Home Meds] 06/18/18 Medical Decision Making - Data Points Laboratory Results: Laboratory Results 07/29/18 11:05 07/29/18 11:05 07/29/18 07/29/18 07/29/18 11:17 11:05 11:05 WBC RBC Hgb Hct MCV MCH MCHC RDW Plt Count MPV Neut % (Auto) Lymph % (Auto) [place] % (Auto) Eos % (Auto) Baso % (Auto) Nucleat RBC Rel Count Absolute Neuts (auto) Absolute Lymphs (auto) Absolute Monos (auto) Absolute Eos (auto) Absolute Basos (auto) Absolute Nucleated RBC Immature Gran % Immature Gran # RBC/WBC/PLT Morphology Platelet Estimate PT 13.0 SEC SEC (12.0-15.0) INR 0.96 (0.83-1.16) APTT 24.1 SEC SEC (23.0-38.0) Sodium 137 mEq/L mEq/L (135-145) Potassium 4.2 mEq/L mEq/L (3.5-5.2) Chloride 107 mEq/L mEq/L (97-110) Carbon Dioxide 22 mEq/l mEq/l (22-31) Anion Gap 8 mEq/L mEq/L (6-14) BUN 24 mg/dL H mg/dL (7-23) Creatinine 1.0 mg/dL mg/dL (0.6-1.0) Estimated GFR 53 Glucose 128 mg/dL H mg/dL (70-100) Calcium 9.2 mg/dL mg/dL (8.5-10.4) Total Bilirubin 0.7 mg/dL mg/dL (0.1-1.4) Conjugated Bilirubin 0.3 mg/dL mg/dL (0.0-0.5) Unconjugated Bilirubin 0.4 mg/dL mg/dL (0.0-1.1) AST 29 IU/L IU/L (14-46) ALT 34 IU/L IU/L (9-52) Alkaline Phosphatase 94 IU/L IU/L (38-126) POC Troponin I 0.00 ng/mL ng/mL (0.00-0.08) Total Protein 7.1 g/dL g/dL (6.3-8.2) Albumin 4.1 g/dL g/dL (3.5-5.0) Lipase 69 IU/L IU/L (23-300) 07/29/18 11:05 WBC 6.35 10^3/uL 10^3/uL (3.80-9.50) RBC 5.34 10^6/uL H 10^6/uL (4.18-5.33) Hgb 15.7 g/dL g/dL (12.6-16.3) Hct 47.1 % H % (38.0-47.0) MCV 88.2 fL fL (81.5-99.8) MCH 29.4 pg pg (27.9-34.1) MCHC 33.3 g/dL g/dL (32.4-36.7) RDW 13.8 % % (11.5-15.2) Plt Count 166 10^3/uL 10^3/uL (150-400) MPV 11.1 fL fL (8.7-11.7) Neut % (Auto) 88.6 % H % (39.3-74.2) Lymph % (Auto) 5.5 % L % (15.0-45.0) [place] % (Auto) 5.0 % % (4.5-13.0) Eos % (Auto) 0.3 % L % (0.6-7.6) Baso % (Auto) 0.3 % % (0.3-1.7) Nucleat RBC Rel Count 0.0 % % (0.0-0.2) Absolute Neuts (auto) 5.63 10^3/uL 10^3/uL (1.70-6.50) Absolute Lymphs (auto) 0.35 10^3/uL L 10^3/uL (1.00-3.00) Absolute Monos (auto) 0.32 10^3/uL 10^3/uL (0.30-0.80) Absolute Eos (auto) 0.02 10^3/uL L 10^3/uL (0.03-0.40) Absolute Basos (auto) 0.02 10^3/uL 10^3/uL (0.02-0.10) Absolute Nucleated RBC 0.00 10^3/uL 10^3/uL (0-0.01) Immature Gran % 0.3 % % (0.0-1.1) Immature Gran # 0.02 10^3/uL 10^3/uL (0.00-0.10) RBC/WBC/PLT Morphology TNP Platelet Estimate TNP PT INR APTT Sodium Potassium Chloride Carbon Dioxide Anion Gap BUN Creatinine Estimated GFR Glucose Calcium Total Bilirubin Conjugated Bilirubin Unconjugated Bilirubin AST ALT Alkaline Phosphatase POC Troponin I Total Protein Albumin Lipase Medications Given: Famotidine/Sodium Chloride (Pepcid 20 Mg (Premix)) 50 mls @ 200 mls/hr IV EDNOW ONE Stop: 07/29/18 12:52 Last Admin: 07/29/18 12:49 Dose: 50 mls Discontinued Medications Aspirin (Aspirin) 324 mg PO EDNOW ONE Stop: 07/29/18 11:11 Last Admin: 07/29/18 11:23 Dose: 324 mg Ondansetron HCl (Zofran) 4 mg IVP EDNOW ONE Stop: 07/29/18 11:11 Last Admin: 07/29/18 11:24 Dose: 4 mg Point of Care Test Results: Chemistry 07/29/18 11:17 POC Troponin I 0.00 ng/mL ng/mL (0.00-0.08) Departure - Departure Disposition: [facility] Inpatient Acute Clinical Impression: Epigastric pain, Chest pain Referrals: Didi Garrison MD [Primary Care Provider] - As per Instructions
[2018-07-29] MEDS ORDERED: FAMOTIDINE 20 MG/NACL 50 ML IV ONE (12:38)
[2018-07-29] MEDS ORDERED: ONDANSETRON 4 MG/2 ML VIAL IVP PRN (13:04)
[2018-07-29] MEDS ORDERED: ONDANSETRON DISINTEGRATING 4 MG TAB PO PRN (13:04)
[2018-07-29] MEDS ORDERED: ACETAMINOPHEN 325 MG TAB PO PRN (13:04)
[2018-07-29] MEDS ORDERED: LIDOCAINE 2% VISCOUS 15 ML UDCUP PO ONE (14:01)
[2018-07-29] MEDS ORDERED: MAG HYDROX/AL HYDROX/SIMETH 30 ML UDCUP PO ONE (14:01)
[2018-07-29] MEDS ORDERED: MAG HYDROX/AL HYDROX/SIMETH 30 ML UDCUP PO PRN (14:01)
[2018-07-29] MEDS ORDERED: HYOSCYAMINE SULFATE 0.125 MG TAB PO ONE (14:01)
--- NOTE | 2018-07-29 14:41 | PDGENHP ---
History and Physical - Chief Complaint Epigastric, Chest Pain - History of Present Illness Lainey Roger is a 78 yo F with a PMHx of nephrolithiasis, hiatal hernia who presents to [facility] for epigastric and chest pain. She reports that epigastric pain started acutely last evening, described as sharp and burning in quality with no radiation. She reports some infrequent episodes of indigestion in the past however this one was much more severe. She reports it continued until this morning and was associated with nausea and episode of non-bilious, non- bloody vomiting. She also reports that she has had a L sided chest pain that is more dull in quality, and radiated to her L shoulder and L side of neck. She notices pain when resting and denies any worsening with exertion. It is not associated with SOB, diaphoresis, nausea, palpitations, LH/dizziness. She reports having a stress test and heart catheterization in the past for similar symptoms with no significant findings. History Information - Allergies/Home Medication List Allergies/Adverse Reactions: No Known Allergies Allergy (Verified 07/29/18 10:37) Home Medications: C/E/Zn/Cu/OM3/DHA/EPA/LUT/ZEAX [Preservision Areds 2 Softgel] 1 each PO DAILY [Last Taken Unknown] Carboxymethylcellulose 1% [Refresh Celluvisc (*)] 1 drop EACHEYE DAILY PRN 07/29 [Last Taken Unknown] [place]-3 Fatty Acids [Fish Oil 1000 mg (*)] 1,000 mg PO DAILY 07/29/18 [Last Taken Unknown] I have personally reviewed and updated: family history, medical history, social history, surgical history - Past Medical History no pertinent PMH - Surgical History Reports: no pertinent surgical hx - Family History Positive for: non-pertinent - Social History Smoking Status: Never smoked Review of Systems Review of Systems: ROS: 10pt was reviewed & negative except for what was stated in HPI & below Physical Exam Physical Exam: Temp Pulse Resp BP Pulse Ox 37.0 C 85 20 112/66 89 L 07/29/18 14:10 07/29/18 14:10 07/29/18 14:10 07/29/18 14:10 07/29/18 14:10 Constitutional: no apparent distress Eyes: PERRL Ears, Nose, Mouth, Throat: moist mucous membranes Cardiovascular: regular rate and rhythym Respiratory: no respiratory distress, clear to auscultation Gastrointestinal: soft, non-tender abdomen Skin: normal color Musculoskeletal: full muscle strength Neurologic: AAOx3 Psychiatric: interacting appropriately Lab Data & Imaging Review 07/29/18 11:05 07/29/18 11:05 WBC 6.35 10^3/uL (3.80-9.50) 07/29/18 11:05 RBC 5.34 10^6/uL (4.18-5.33) H 07/29/18 11:05 Hgb 15.7 g/dL (12.6-16.3) 07/29/18 11:05 Hct 47.1 % (38.0-47.0) H 07/29/18 11:05 MCV 88.2 fL (81.5-99.8) 07/29/18 11:05 MCH 29.4 pg (27.9-34.1) 07/29/18 11:05 MCHC 33.3 g/dL (32.4-36.7) 07/29/18 11:05 RDW 13.8 % (11.5-15.2) 07/29/18 11:05 Plt Count 166 10^3/uL (150-400) 07/29/18 11:05 MPV 11.1 fL (8.7-11.7) 07/29/18 11:05 Neut % (Auto) 88.6 % (39.3-74.2) H 07/29/18 11:05 Lymph % (Auto) 5.5 % (15.0-45.0) L 07/29/18 11:05 [place] % (Auto) 5.0 % (4.5-13.0) 07/29/18 11:05 Eos % (Auto) 0.3 % (0.6-7.6) L 07/29/18 11:05 Baso % (Auto) 0.3 % (0.3-1.7) 07/29/18 11:05 Nucleat RBC Rel Count 0.0 % (0.0-0.2) 07/29/18 11:05 Absolute Neuts (auto) 5.63 10^3/uL (1.70-6.50) 07/29/18 11:05 Absolute Lymphs (auto) 0.35 10^3/uL (1.00-3.00) L 07/29/18 11:05 Absolute Monos (auto) 0.32 10^3/uL (0.30-0.80) 07/29/18 11:05 Absolute Eos (auto) 0.02 10^3/uL (0.03-0.40) L 07/29/18 11:05 Absolute Basos (auto) 0.02 10^3/uL (0.02-0.10) 07/29/18 11:05 Absolute Nucleated RBC 0.00 10^3/uL (0-0.01) 07/29/18 11:05 Immature Gran % 0.3 % (0.0-1.1) 07/29/18 11:05 Immature Gran # 0.02 10^3/uL (0.00-0.10) 07/29/18 11:05 RBC/WBC/PLT Morphology TNP 07/29/18 11:05 Platelet Estimate TNP 07/29/18 11:05 PT 13.0 SEC (12.0-15.0) 07/29/18 11:05 INR 0.96 (0.83-1.16) 07/29/18 11:05 APTT 24.1 SEC (23.0-38.0) 07/29/18 11:05 Sodium 137 mEq/L (135-145) 07/29/18 11:05 Potassium 4.2 mEq/L (3.5-5.2) 07/29/18 11:05 Chloride 107 mEq/L (97-110) 07/29/18 11:05 Carbon Dioxide 22 mEq/l (22-31) 07/29/18 11:05 Anion Gap 8 mEq/L (6-14) 07/29/18 11:05 BUN 24 mg/dL (7-23) H 07/29/18 11:05 Creatinine 1.0 mg/dL (0.6-1.0) 07/29/18 11:05 Estimated GFR 53 07/29/18 11:05 Glucose 128 mg/dL (70-100) H 07/29/18 11:05 Calcium 9.2 mg/dL (8.5-10.4) 07/29/18 11:05 Total Bilirubin 0.7 mg/dL (0.1-1.4) 07/29/18 11:05 Conjugated Bilirubin 0.3 mg/dL (0.0-0.5) 07/29/18 11:05 Unconjugated Bilirubin 0.4 mg/dL (0.0-1.1) 07/29/18 11:05 AST 29 IU/L (14-46) 07/29/18 11:05 ALT 34 IU/L (9-52) 07/29/18 11:05 Alkaline Phosphatase 94 IU/L (38-126) 07/29/18 11:05 POC Troponin I 0.00 ng/mL (0.00-0.08) 07/29/18 11:17 Total Protein 7.1 g/dL (6.3-8.2) 07/29/18 11:05 Albumin 4.1 g/dL (3.5-5.0) 07/29/18 11:05 Lipase 69 IU/L (23-300) 07/29/18 11:05 Visualized and Interpreted Chest x-ray results: Yes Chest X-Ray results: no infiltrate, normal Assessment & Plan Assessment: Epigastric pain (Acute) - Acute episode overnight with severe, sharp epigastric pain associated with n/v - Reports recent CT finding small hiatal hernia - Differential includes PUD, gastritis, esophagitis, GERD - Will treat with GI cocktail, PRN Maalox, PO Pantoprazole 40 mg qd - If no improvements with above medications, consider GI consult for further evaluation, possible EGD Chest pain (Acute) - Reports L sided chest pain for months in duration, radiates to L arm/neck, not associated with exertion, no assoc symptoms - LHC performed by Dr. Crum in 2011 which showed mild non-obstructive disease - Initial Troponin WNL and EKG with no acute ischemic changes on admission - Chest pain protocol ordered with serial troponins, repeat EKG, Treadmill stress test ordered for the AM - S/p ASA in the ED, will continue 81 mg qd Hx of Nephrolithiasis - Denies any flank pain, dysuria - CT from ED admission on 06/17 shows L sided hydronephrosis - If symptoms arise, consider repeat imaging, further management FEN: Regular, NPO after midnight Code: FULL DVT PPx: Lovenox Dispo: Admit to Observation
[2018-07-29] MEDS: PANTOPRAZOLE SODIUM 40 MG TAB PO SCH (16:09)
[2018-07-29] MEDS ORDERED: FAMOTIDINE 20 MG/NACL 50 ML IV SCH (21:00)
--- NOTE | 2018-07-29 22:30 | CPEKG ---
Test Reason : OPEN Blood Pressure : / mmHG Vent. Rate : 086 BPM Atrial Rate : 086 BPM P-R Int : 228 ms QRS Dur : 077 ms QT Int : 366 ms P-R-T Axes : 033 019 023 degrees QTc Int : 438 ms Sinus rhythm Prolonged MA interval Confirmed by Katie Baxter ([id number]) on 07/29/2018 10:30:00 PM Referred By: PHYSICIAN ED Confirmed By:Katie Baxter
[2018-07-30] MEDS: PANTOPRAZOLE SODIUM 40 MG TAB PO SCH (08:06)
[2018-07-30] MEDS ORDERED: ENOXAPARIN 40 MG/0.4 ML SYR SC SCH (09:00)
--- NOTE | 2018-07-30 11:26 | CPR ---
PROCEDURE: Exercise treadmill. SUPERVISING FITTING ROOM INSPECTOR: Dalton Ascencio M.D. INDICATION FOR PROCEDURE: Chest pain with radiation into the neck. PRE: After obtaining informed consent, patient was placed on electrocardiogram. Initial EKG shows s inus rhythm, normal axis, no significant ST or T-wave abnormalities. Saturation 95% on room air. Bl ood pressure of 104/66. Patient does report a left shoulder pain that has been ongoing since hospita lization, but denies any chest pressure or radiation in her neck. With palpation of the left shoulde r pain worsens. STRESS: The patient was placed on exercise treadmill, following standard Alfie protocol with the [facility] findings: 1. The patient exercised for 7 minutes. 2. 8.3 METS. 3. Patient obtained a peak heart rate of 132 beats per minute, which was 93% of her MPHR. 4. Patient had no ST shifts at peak exercise suggestive of ischemia. 5. Patient reporting left shoulder pain unchanged with exertion, still worsening with palpation, but reporting no chest pressure, shortness of breath, nausea, or symptoms suggestive of cardiac ischemia . 6. Patient had rare PAC. 7. BP response: Rest 104/66, peak 146/74. 8. The patient did drop her SpO2 at peak exercise to 87%. 9. Testing was stopped due to maximum effort. 10. Trejo treadmill score of 7, placing her at low cardiovascular risk. RECOVERY: Patient recovered for 5 minutes, heart and blood pressure returned back to baseline fairly quickly. No arrhythmias. No symptoms of ischemia. IMPRESSION: A 78-year-old female admitted for chest pressure with radiation into the neck, underwent exercise treadmill with no symptoms suggestive of ischemia, no EKG changes suggestive of ischemia. Trejo treadmill score of 7, placing her at low cardiovascular risk. Results reviewed with Dr. Silva wilkerson nd called to Dr. Cuadra of [facility]. /[id number]/MODL
--- NOTE | 2018-07-30 11:43 | ASMTCMCOM ---
CM Note CM Note Notes: Reviewed chart, pt admitted for epigastric and left sided chest pain. Pt had a non eventful treadmill stress test, anticipate she will dc home w/support of LP when medically stable. CM available for any changes. DC Plan: Independent Date Signed: 07/30/2018 11:42 AM Electronically Signed By:Kathy Fortune RN
[2018-07-30 13:32] VITALS: BP 117/68
--- NOTE | 2018-07-30 18:15 | PDDCSUM ---
Discharge Summary Discharge Summary: 78 yo female admitted with cp intermittently for months. The pt was admitted. A stress test was ordered and is unremarkable. Cardiac w/u is unremarkable. Etiology is likely GI per below and she was started on a PPI. She will f/u with PCP in one week. DDX: Epigastric pain (Acute) - Acute episode overnight with severe, sharp epigastric pain associated with n/v - Reports recent CT finding small hiatal hernia - Differential includes PUD, gastritis, esophagitis, GERD - Will treat with GI cocktail, PRN Maalox, PO Pantoprazole 40 mg qd Chest pain (Acute) - non cardiac Hx of Nephrolithiasis - Denies any flank pain, dysuria - CT from ED admission on 06/17 shows L sided hydronephrosis - If symptoms arise, consider repeat imaging, further management. NOt symptomatic on d/c Exam: NAD AAOX3 RRR CTA B S/NT/ND MEDS: SEE MED REC TOTAL TIME SPEN ON D/C IS 35 MINS
== END 2018-07-30 17:06 | disposition home or self-care (01) ==
LOC: F2W 14:00
PROVIDERS: ADMIT Internal Medicine; ATTEND Family Medicine
DX: R10.13 Epigastric pain (principal); R07.9 Chest pain, unspecified; K44.9 Diaphragmatic hernia without obstruction or gangrene; Z87.442 Personal history of urinary calculi
CPT/HCPCS: 71045; 93005; 93017; 96365; 96375; 99285; G0378; J2405; 84484-ER; J1650

== ENCOUNTER → 2018-09-03 | Outpatient (CLI) | payer OTHER | LOC: FIMAGING 08:14 | PROVIDERS: ATTEND Internal Medicine Gastroenterology | DX: K44.9 Diaphragmatic hernia without obstruction or gangrene (principal); Q64.8 Other specified congenital malformations of urinary system | CPT/HCPCS: 74177; Q9967 ==

== ENCOUNTER → 2018-11-10 | Outpatient (CLI) | payer OTHER | LOC: BMCIMAGING 09:45 | PROVIDERS: ATTEND Internal Medicine Endocrinology, Diabetes & Metabolism | DX: M81.0 Age-related osteoporosis without current pathological fracture (principal); Z78.0 Asymptomatic menopausal state ==

== ENCOUNTER → 2018-11-19 | Outpatient (CLI) | payer OTHER | LOC: FCPNEURO 21:30 | PROVIDERS: ATTEND Student in an Organized Health Care Education/Training Program | DX: G47.33 Obstructive sleep apnea (adult) (pediatric) (principal) ==